=== PATIENT | female | born 1970 | race Asian ===

== ENCOUNTER 2016-08-19 06:35 | Emergency (ER) | payer BC, OTHER ==
[~2016-08-19] VITALS: Ht 177.8 cm; Wt 59.9 kg
[~2016-08-19 06:35] MED LIST: ALLERGY EYE DROPS EACHEYE; ELMIRON PO; FEXO1TAB8 PO; LIDO700A TD
[2016-08-19 07:18] VITALS: BP_SYST 109
[2016-08-19 07:50] LABS: BILIRUBIN,URINE 1+ (NEGATIVE); BLOOD, URINE 3+ (NEGATIVE); CLARITY/URINE CLOUDY (CLEAR); COLOR,URINE RED (YELLOW); GLUCOSE,URINE NEGATIVE (NEGATIVE); KETONES,URINE TRACE (NEGATIVE); LEUKOCYTE ESTERASE ,URINE 2+ (NEGATIVE); NITRITE, URINE POSITIVE (NEGATIVE); PH,URINE 6.5 (5.0-8.0); PROTEIN URINE 3+ (NEGATIVE)
[2016-08-19 07:58] LABS: RBC,URINE >100 /HPF (0-3)
[2016-08-19 07:59] LABS: BACTERIA,URINE MODERATE /HPF (None Seen)
[2016-08-19 08:32] VITALS: BP_SYST 112
== END 2016-08-19 08:30 | disposition home or self-care (01) ==
LOC: SED 06:35
DX: N39.0 Urinary tract infection, site not specified (principal); R31.9 Hematuria, unspecified; Z91.013 Allergy to seafood; Z91.041 Radiographic dye allergy status; Z91.040 Latex allergy status; Z91.048 Other nonmedicinal substance allergy status; Z88.1 Allergy status to other antibiotic agents
CPT/HCPCS: 81000-TC; 81025; 87086; 99284